=== PATIENT | male | born 1985 | race Asian ===

== ENCOUNTER 2019-05-26 04:56 | Outpatient (CLI) | payer OTHER | END 2019-05-26 05:11 | disposition short-term general hospital (02) | LOC: AMB 04:56 | DX: M54.5 Low back pain (principal); M25.511 Pain in right shoulder; R51 Headache; R55 Syncope and collapse; V89.2XXA Person injured in unspecified motor-vehicle accident, traffic, initial encounter; Y92.413 State road as the place of occurrence of the external cause; Y93.89 Activity, other specified | CPT/HCPCS: A0425; A0427 ==

== ENCOUNTER 2019-05-26 05:12 | Emergency (ER) | payer OTHER ==
[~2019-05-26] VITALS: Ht 165.1 cm; Wt 56.7 kg
[2019-05-26 05:28] VITALS: TEMP 99.3
[2019-05-26 07:46] VITALS: BP 132/84
== END 2019-05-26 07:46 | disposition home or self-care (01) ==
LOC: ED 05:19
DX: R51 Headache (principal); M54.2 Cervicalgia; M54.6 Pain in thoracic spine; V57.0XXA Driver of pick-up truck or van injured in collision with fixed or stationary object in nontraffic accident, initial encounter
CPT/HCPCS: 96374; 99284; J1885